=== PATIENT | female | born 1955 | race Caucasian/White ===

== ENCOUNTER 2017-02-10 12:00 | Emergency (ER) | payer BC, OTHER ==
[~2017-02-10] VITALS: Ht 157.5 cm; Wt 87.3 kg
[2017-02-10] MEDS ORDERED: ONDANSETRON ODT 4 MG PO ONE (13:00)
[2017-02-10] MEDS ORDERED: MECLIZINE CHEWABLE 25 MG TAB PO ONE (13:00)
[2017-02-10] MEDS ORDERED: ONDANSETRON ODT 4 MG ONE (13:08)
[2017-02-10] MEDS ORDERED: MECLIZINE CHEWABLE 25 MG TAB ONE (13:08)
[2017-02-10 13:25] LABS: HEMATOCRIT 43.4 % (34.6-47.8); HEMOGLOBIN 14.8 g/dL (11.7-16.4); WHITE BLOOD COUNT 7.8 x10^3/uL (3.4-10)
[2017-02-10] MEDS ORDERED: LOSA1TAB18 PO (13:25)
[2017-02-10 13:38] LABS: BLOOD UREA NITROGEN 16 mg/dL (7-18)
[2017-02-10 13:43] LABS: ASPARTATE AMINO TRANSFERASE 25 U/L (15-37); IS PT STATUS REG ER OR PRE ER? YES
[2017-02-10] MEDS ORDERED: CEFDINIR 300 MG CAPSULE PO ONE (15:30)
[2017-02-10 15:43] VITALS: BP 162/70
== END 2017-02-10 15:45 | disposition home or self-care (01) ==
LOC: ED 14:04
DX: H81.10 Benign paroxysmal vertigo, unspecified ear (principal); N30.90 Cystitis, unspecified without hematuria
CPT/HCPCS: 36415; 80053; 81001; 83605; 84484; 85025; 87086; 93005; 99285; Q0162